=== PATIENT | female | born 1975 | race Hispanic/Latino ===

== ENCOUNTER 2021-02-11 01:53 | Emergency (ER) | payer SELFPAY ==
[2021-02-11] MEDS ORDERED: Aspirin 325 MG TAB ONE (02:33)
[2021-02-11 02:38] LABS: ALT (SGPT) 15 U/L (8-55); AST (SGOT) 13 U/L (5-34); Alkaline Phosphatase 110 U/L (40-110); Anion Gap 13 mmol/L (10-20); BUN (Urea Nitrogen) 13 mg/dL (7.0-18.7); Bilirubin, Total 0.2 mg/dL (0.2-1.2); Calc. Creatinine Clearance 0 mL/min (70-130); Calcium 9.3 mg/dL (7.8-10.44); Carbon Dioxide 23 mmol/L (22-29); Chloride 108 mmol/L (98-107); Globulin 3.2 g/dL (2.4-3.5); Glucose 109 mg/dL (70-105); Lipase 19 U/L (8-78); Protein, Total 7.2 g/dL (6.0-8.3); Sodium 140 mmol/L (136-145)
[2021-02-11 03:14] LABS: #Eosinphils 0.1 10x3/uL (0.0-0.5); #Monocytes 0.8 10x3/uL (0.0-1.1); #Neutrophils 4.3 10x3/uL (1.5-8.4); %Basophils 0.1 % (0.0-2.0); %Eosinophils 1.2 % (0.0-6.0); %Monocytes 8.8 % (0.0-10.0); %Neutrophils 50.7 % (40.0-75.0); Hemoglobin 12.4 g/dL (12.0-15.5); Mean Corpuscular HGB CONC 33.8 g/dL (32.0-36.0); Mean Corpuscular Hemoglobin 31.9 pg (27.0-33.0); Mean Corpuscular Volume 94.3 fl (81.6-98.3); Mean Platelet Volume 8.9 fl (7.4-10.4); Platelet Count 253 10x3/uL (150-450); RBC Distribution Width 12.6 % (11.5-14.5); Red Blood Cell (RBC) Count 3.89 10x6/uL (3.90-5.03); White Blood Cell (WBC) Count 8.5 10x3/uL (3.5-10.5)
== END 2021-02-11 03:35 | disposition home or self-care (01) ==
LOC: CSHERS 01:53
DX: R07.89 Other chest pain (principal)
CPT/HCPCS: 71045; 80053; 83690; 84484; 85025; 93005